=== PATIENT | male | born 1945 | race Caucasian/White ===

== ENCOUNTER 2025-10-27 15:23 | Inpatient (IN) | payer MEDICARE, MEDICAID ==
[~2025-10-27] VITALS: Ht 180.3 cm; Wt 77.0 kg
--- NOTE | 2025-10-27 15:34 | Physician Documentation ---
History of Present Illness General Stated Complaint: STEMI Time Seen by MD: 15:34 Medication Reconciliation Allergies: Coded Allergies: COVID-19 vaccine, mRNA, [id number], (Verified Allergy, Unknown, throat tightness, 10/27/25) Beta-Blockers (Beta-Adrenergic Bloc (Verified Adverse Reaction, Unknown, unspecified, 10/27/25) atenolol (Verified Adverse Reaction, Unknown, light headed, 10/27/25) bupropion (Verified Adverse Reaction, Unknown, unspecified, 10/27/25) levofloxacin (Verified Adverse Reaction, Unknown, unspecified, 10/27/25) Scheduled Amlodipine Besylate (Amlodipine Besylate), 1 TAB PO DAILY, (Reported) Duloxetine HCl (Duloxetine HCl), 1 CAP PO DAILY, (Reported) Fluticasone/Umeclidin/Vilanter (Trelegy Ellipta 200-62.5-25), 1 PUFFS INH DAILY, (Reported) Furosemide (Furosemide), 1 TAB PO DAILY, (Reported) Neomycin/Bacitracin/Polymyxinb (Neosporin Ointment), 1 APPLIC TOP Q12H, (Reported) Omeprazole (Prilosec), 1 CAP PO DAILY, (Reported) Rivaroxaban (Xarelto), 1 TAB PO DAILY, (Reported) Scheduled PRN Cyclobenzaprine HCl (Cyclobenzaprine HCl), 1 TAB PO TID PRN for muscle spasm, (Reported) Miscellaneous Medications Calcium Phosphate Dibas/Vit D3 (Risacal-D Tablet), (Reported) Guaifenesin (Chest Congestion Relief), (Reported) Insulin Glargine,Hum.rec.anlog* (Lantus*), SQ, (Reported) Insulin Lispro (Insulin Lispro Kwikpen U-100), SQ, (Reported) Prednisone (Prednisone), TAB PO, (Reported) Semaglutide (Ozempic), (Reported) Progress Results/Orders Results/Orders Orders - OHLFSJOAQUINA MD Chest,Single View (10/27/25 15:57) Monitor (10/27/25 15:36) Saline Lock (10/27/25 15:36) Oxygen (10/27/25 15:36) Completed Orders - OHLJOAQUINA ENNIS MD Chest,Single View (10/27/25 15:57) Cbc/Diff (10/27/25 15:36) BMP (10/27/25 15:36) PBNP (10/27/25 15:36) Electrocardiogram (10/27/25 15:36) Hs Troponin I W Calculations (10/27/25 15:36) Hs Troponin I W Calculations (10/27/25 17:36) Hs Troponin I W Calculations (10/27/25 18:36) Hgb A1c (10/27/25 15:45) Vital Signs 10/27/25 10/27/25 10/27/25 15:29 15:38 15:38 Temp 98.4 Pulse 96 Resp 16 18 B/P (MAP) 147/83 Pulse Ox 97 96 O2 Delivery Nasal Cannula* O2 Flow Rate 3.0 3 FiO2 N/A Laboratory Tests Test 10/27/25 15:45 White Blood Count 13.5 H Red Blood Count 5.47 Hemoglobin 12.8 L Hematocrit 40.7 L Mean Corpuscular Volume 74.3 L Mean Corpuscular Hemoglobin 23.4 L Mean Corpuscular Hemoglobin Concent 31.4 L Red Cell Distribution Width 18.8 H Platelet Count 229 Mean Platelet Volume 7.8 Neutrophils (%) (Auto) 92.8 H Lymphocytes (%) (Auto) 6.4 L Monocytes (%) (Auto) 0.5 L Eosinophils (%) (Auto) 0 Basophils (%) (Auto) 0.3 Neutrophils # (Auto) 12.5 H Lymphocytes # (Auto) 0.9 L Monocytes # (Auto) 0.1 Eosinophils # (Auto) 0.0 Basophils # (Auto) 0.0 CBC Comment Platelet Estimate Normal Red Blood Cell Morphology Perf Basophilic Stippling Anisocytosis 2+ Microcytosis 1+ Sodium Level 145 Potassium Level 3.9 Chloride Level 108 H Carbon Dioxide Level 30.9 Anion Gap 6 L Blood Urea Nitrogen 20 H Creatinine 1.25 H Estimated GFR/1.73 m2 55 BUN/Creatinine Ratio 16.0 Glucose Level 175 H Hemoglobin A1c 7.3 H Calcium Level 8.7 Troponin I High Sensitivity 713 *H Pro-B-Type Natriuretic Peptide 1006 H Albumin 3.3 L Chemistry Comments Departure Referrals: NO PRIMARY CARE PROVIDER (PCP) OHLLOLI,JOAQUINA Salcido MD Oct 27, 2025 15:34
--- NOTE | 2025-10-27 15:38 | ELECTROCARDIOGRAPH REPORT ---
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 SILVINO De Diso Measurements Intervals [place] Rate: 96 P: -79 UT: 157 QRS: -47 QRSD: 114 T: 35 QT: 357 QTc: 452 Interpretive Statements Ectopic atrial rhythm Atrial premature complex Sinus pause Abnormal R-wave progression, early transition LVH with IVCD, LAD and secondary repol abnrm Electronically Signed On 11-01-2025 19:21:[address] SILVINO De Dios Please click the below link to view image of tracing.
--- NOTE | 2025-10-27 15:49 | Physician Documentation ---
History of Present Illness CC: JOAQUINA FERREIRA MD ~ Chief Complaint: Chest Pain Stated Complaint: STEMI Time Seen by MD: 15:34 OK to notify your PCP?: Yes HPI This is a 80-year-old male with a history of atrial fibrillation, COPD 2 L home oxygen, CAD, patent foramen ovale, CKD, type 2 diabetes, epilepsy was transferred from the ER [facility] for evaluation of NSTEMI and cardiology consultation. Patient endorses that he had 3/10 chest pain associated with shortness of Breath this morning when he was returning from [facility] to the parking lot. Breathing treatment was administered at ER of [facility]. He also took all of his morning medications including Xarelto. EKG at [facility] showed atrial fibrillation without RVR heart rate 88, LVH, left axis deviation, nonspecific STT wave changes similar to prior EKGs. A chest x-ray showed no acute cardiopulmonary abnormalities. Laboratory data was significant for elevated troponin of 510 and 2nd troponin 07/30/2005. Patient was started on heparin drip and was transferred to the ER of [facility]. Echocardiogram in November 2024 showed EF of 55%, concentric LVH, moderate and mild MR. Patient received aspirin 324 mg and one dose of IV Solu-Medrol and breathing treatment with albuterol and Atrovent. Chest pain resolved with aspirin and saturation improved to 97% on 2 L of oxygen cannula. Other laboratory workup was within normal limits. Patient has a heavy smoking history since the age 13 and quit eight years ago (smoked about one pack per day). He was also heavy alcoholic and quit few years ago. 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 Patient has carotid stents placed in the left side. Patient also has a history of colostomy bag placement and colostomy reversal in the past. Timing/Duration: hours Quality/Severity: moderate Pain Location: substernal Radiation: no radiation Activities at Onset: light exertion Prior Cardiac Workup: stress test Modifying Factors: Improves with: breathing Nitro Today/Relief: no nitro taken today Aspirin Today: 325 mg x 1 Associated Symptoms: shortness of breath Medication Reconciliation Allergies: Coded Allergies: COVID-19 vaccine, mRNA, [id number], (Verified Allergy, Unknown, throat tightness, 10/27/25) Beta-Blockers (Beta-Adrenergic Bloc (Verified Adverse Reaction, Unknown, unspecified, 10/27/25) atenolol (Verified Adverse Reaction, Unknown, light headed, 10/27/25) bupropion (Verified Adverse Reaction, Unknown, unspecified, 10/27/25) levofloxacin (Verified Adverse Reaction, Unknown, unspecified, 10/27/25) Scheduled Amlodipine Besylate (Amlodipine Besylate), 1 TAB PO DAILY, (Reported) Duloxetine HCl (Duloxetine HCl), 1 CAP PO DAILY, (Reported) Fluticasone/Umeclidin/Vilanter (Trelegy Ellipta 200-62.5-25), 1 PUFFS INH DAILY, (Reported) Furosemide (Furosemide), 1 TAB PO DAILY, (Reported) Neomycin/Bacitracin/Polymyxinb (Neosporin Ointment), 1 APPLIC TOP Q12H, (Reported) Omeprazole (Prilosec), 1 CAP PO DAILY, (Reported) Rivaroxaban (Xarelto), 1 TAB PO DAILY, (Reported) Scheduled PRN Cyclobenzaprine HCl (Cyclobenzaprine HCl), 1 TAB PO TID PRN for muscle spasm, (Reported) Miscellaneous Medications Calcium Phosphate Dibas/Vit D3 (Risacal-D Tablet), (Reported) Guaifenesin (Chest Congestion Relief), (Reported) Insulin Glargine,Hum.rec.anlog* (Lantus*), SQ, (Reported) Insulin Lispro (Insulin Lispro Kwikpen U-100), SQ, (Reported) Prednisone (Prednisone), TAB PO, (Reported) Semaglutide (Ozempic), (Reported) Review of Systems Constitutional Constitutional: No fever, chills, dizziness, weakness, weight gain or loss Eyes: No pain, erythema, discharge, blurring of vision ENT: No sore throat, epistaxis, tinnitus Cardiovascular: No palpitations, syncope, lower extremity edema, paroxysmal nocturnal dyspnea Respiratory: Shortness of breath, No hemoptysis Gastrointestinal: Normal appetite. No nausea, vomiting, diarrhea, constipation, hematemesis, abdominal pain, bloating, melena or fresh blood Genitourinary: No frequency, urgency, nocturia, hematuria or dysuria Musculoskeletal: No arthralgias or myalgias Integumentary: No change in skin, hair, nails. No swelling, bruising, abrasions Neurologic: No headache, neck pain, numbness or tingling of the extremities, weakness Psychiatric: No delusions, depression, loss of interest in normal activity or change in sleep pattern, hallucinations, suicidal ideations Endocrine: No fatigue, weakness, polydipsia, polyuria, change in appetite, heat or cold intolerance, sweating, dry skin Hematological: No bleeding, petechiae, bruising Allergies: No asthma or urticaria Physical Exam Vital Signs: Temperature: 98.4, Source: Oral, Heart Rate: 96, Respiratory Rate: 16, BP: 147/83, Pulse Oximetry: 97, Weight: 77.000 Oxygen Flow Rate: 3.0 General Appearance General: Awake and Alert, no acute distress. On 3 L of oxygen through nasal cannula HEENT: Conjunctiva pink, Sclera clear, Mucus Membranes moist Neck: Supple without masses and tenderness. Resp: Unlabored. Decreased breath sounds bilaterally and mild wheezing on auscultation. Heart: Regular rhythm, normal S1 and S2, no rub, murmur or gallop, muffled heart sounds. Abdomen: Soft and non tender no organomegaly. Normal bowel sounds x4 quadrant normoactive. No guarding or rigidity. Extremities: Normal ROM, no swelling, nontender. No cyanosis,clubbing or edema. 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 Skin: Multiple bruises on arms and face. Warm and Dry. Progress Results/Orders Results/Orders Orders - JOAQUINA FERREIRA MD Chest,Single View (10/27/25 15:57) Monitor (10/27/25 15:36) Saline Lock (10/27/25 15:36) Oxygen (10/27/25 15:36) Completed Orders - JOAQUINA FERREIRA MD Chest,Single View (10/27/25 15:57) Cbc/Diff (10/27/25 15:36) BMP (10/27/25 15:36) PBNP (10/27/25 15:36) Electrocardiogram (10/27/25 15:36) Hs Troponin I W Calculations (10/27/25 15:36) Hs Troponin I W Calculations (10/27/25 17:36) Hs Troponin I W Calculations (10/27/25 18:36) Hgb A1c (10/27/25 15:45) Vital Signs 10/27/25 10/27/25 10/27/25 15:29 15:38 15:38 Temp 98.4 Pulse 96 Resp 16 18 B/P (MAP) 147/83 Pulse Ox 97 96 O2 Delivery Nasal Cannula* O2 Flow Rate 3.0 3 FiO2 N/A Laboratory Tests Test 10/27/25 15:45 White Blood Count 13.5 H Red Blood Count 5.47 Hemoglobin 12.8 L Hematocrit 40.7 L Mean Corpuscular Volume 74.3 L Mean Corpuscular Hemoglobin 23.4 L Mean Corpuscular Hemoglobin Concent 31.4 L Red Cell Distribution Width 18.8 H Platelet Count 229 Mean Platelet Volume 7.8 Neutrophils (%) (Auto) 92.8 H Lymphocytes (%) (Auto) 6.4 L Monocytes (%) (Auto) 0.5 L Eosinophils (%) (Auto) 0 Basophils (%) (Auto) 0.3 Neutrophils # (Auto) 12.5 H Lymphocytes # (Auto) 0.9 L Monocytes # (Auto) 0.1 Eosinophils # (Auto) 0.0 Basophils # (Auto) 0.0 CBC Comment Platelet Estimate Normal Red Blood Cell Morphology Perf Basophilic Stippling Anisocytosis 2+ Microcytosis 1+ Sodium Level 145 Potassium Level 3.9 Chloride Level 108 H Carbon Dioxide Level 30.9 Anion Gap 6 L Blood Urea Nitrogen 20 H Creatinine 1.25 H Estimated GFR/1.73 m2 55 BUN/Creatinine Ratio 16.0 Glucose Level 175 H Hemoglobin A1c 7.3 H Calcium Level 8.7 Troponin I High Sensitivity 713 *H Pro-B-Type Natriuretic Peptide 1006 H Albumin 3.3 L Chemistry Comments Heart Score: Heart Score Response (Comments) Value History Moderate Suspicious 1 EKG Repolarization Disturb 1 Age >65 2 Risk Factors >3 or Hx ASHD 2 Troponin >3 x's Normal limit 2 Total 8 Medical Decision Making Additional information obtaine: old records, other Findings EKG showed nonspecific ST-depression in inferior leads and T-wave inversions. Heparin drip was not continued as the patient's last dose of Xarelto was this morning. Heparin drip significantly increases the bleeding risk while superimposed on DOACs. Recommend starting heparin drip after a Xarelto washout period of 12-24 hours. Patient also had wheezing on examination and received a breathing treatment with duo nebs in the ER. Patient likely has COPD exacerbation along with the NSTEMI. Heart Score: 8 Differential Dx:Considerations: Include: angina, aortic dissection, chest wall pain, cholelithiasis, CHF, costochondritis, esophageal reflux/spasm, gastritis, myocardial infarction, pericarditis, pleuritis, pneumonia, pneumothorax, pul monary embolus, other Departure Disposition: ADMITTED INPATIENT Admitted to Inpatient Unit: to hospitalist Admission Level of Care: PCU with Tele Impression: Primary Impression: Chest pain Qualified Codes: R07.9 - Chest pain, unspecified Additional Impressions: Acute coronary syndrome COPD exacerbation Condition: Guarded Referrals: NO PRIMARY CARE PROVIDER (PCP) Additional Comment Seen with PA/LEAD ANDROID DEVELOPER The patient was seen with the manager of medical I have reviewed the resident's note and agree with the note as written and of the has been plan. I have independently examined the patient has been involved in all aspects of the patient's care and I have supervised all aspects of the patient's care. The patient's prior hospitalizations has been reviewed the patient presented with COPD he did have a slight episode of chest discomfort earlier in the day for presenting to [facility] where he was found to have elevated troponins the patient was found to be in a COPD exacerbation with a AFib transferred to our facility for cardiac evaluation. The patient's troponin is elevated the patient has been taking Xarelto we stopped his heparin as duplicate their therapy is not indicated this time. The patient has no evidence of an ST- elevation on his EKGs the case she was interpreted by me and the patient will be admitted to the hospitalist service. Signature Scribe Signature: No scribe Attestation: PGY2 resident attestation: Patient was seen and evaluated attending physician Dr. Olivia Chavez MD PGY 2 internal medicine resident ZACKARY GARLAND, RES Oct 27, 2025 15:49 JOAQUINA FERREIRA MD Oct 28, 2025 17:33
[2025-10-27] MEDS ORDERED: ipratropium/albuterol 3ml nebule NEB PRN (15:50)
[2025-10-27 16:03] LABS: MEAN PLATELET VOLUME 7.8 FL (7.4-10.4); RED CELL DISTRIBUTION WIDTH 18.8 % (11.5-14.5)
--- NOTE | 2025-10-27 16:07 | RADIOLOGY REPORT ---
EXAM: DI CHEST,SINGLE VIEW HISTORY: CP COMPARISON: None TECHNIQUE: Portable upright AP views of the chest were performed. FINDINGS: There are mild interstitial opacities in the bilateral lung bases. There may be emphysematous changes of the upper lobes. No no pneumothorax or consolidative infiltrates. The heart is not enlarged. The aortic arch is calcific. IMPRESSION: 1. Mild interstitial opacities in the lung bases may be due to scarring, mild pneumonia, or mild pulmonary edema. Comparison with previous chest imaging would be helpful in making this distinction. 2. Possible Emphysema.
[2025-10-27 16:17] LABS: CREATININE 1.25 MG/DL (0.60-1.10); PLATELET ESTIMATE NORMAL; PRO BRAIN NATRIURETIC PEPTIDE 1006 PG/ML (0-450); TOTAL CARBON DIOXIDE 30.9 MMOL/L (24-32); eCRCL 49 ML/MIN; eGFR 55 ML/MIN
[2025-10-27] MEDS ORDERED: magnesium Cl slow-release 64mg tablet PO PRN (16:55)
[2025-10-27] MEDS ORDERED: potassium Cl 20 mEq SR tablet PO PRN ×2 (16:55)
[2025-10-27] MEDS ORDERED: magnesium hydroxide 30ml (MOM) UD suspension PO PRN (16:55)
[2025-10-27] MEDS ORDERED: magnesium sulf-water 2g/50mL 50 ML IV PRN (16:55)
[2025-10-27] MEDS ORDERED: potassium Cl 40MEQ/1/2NS 520ml 520 ML IV PRN (16:55)
[2025-10-27] MEDS ORDERED: mag hydrox/Alum hydrox/simeth 30ml oral suspension PO PRN (16:55)
[2025-10-27] MEDS ORDERED: magnesium sulf-water 4G/100mL 100 ML IV PRN (16:55)
[2025-10-27] MEDS ORDERED: ondansetron/PF 4mg/2ml inj IV PRN (16:55)
--- NOTE | 2025-10-27 16:55 | CONSULTATION REPORT ---
History of Present Illness Providers to CC CC: JING CASTRO MD ~ Reason for Admit\Admit Dx: Cardiology consultation History of Present Illness Patient presented secondary to shortness for breath. On Monday, he had an episode where his faint blue up in his face resulting in boyce to his nasopharynx. He was prescribed an antibiotic ointment. He was going to [place] to pick this up and developed shortness for breath upon going back to his car. Therefore, he presented back to [facility]. He has a complex medical history including atrial fibrillation on Xarelto, coronary artery disease. He states his main artery in the front of his heart is 50% blocked which is being managed medically, COPD, CKD, diabetes mellitus type 2, history of CVA, pancreatitis, hypertension, PFO, carotid artery stenosis with complete occlusion of the right ICA and multiple stents to the left ICA. Patient denies any chest pain or pressure. Does have shortness for breath and dyspnea on exertion. No dizziness, lightheadedness or syncope. Was asked, but otherwise denies review of systems. Allergies: Coded Allergies: COVID-19 vaccine, mRNA, [id number], (Verified Allergy, Unknown, throat tightness, 10/27/25) Beta-Blockers (Beta-Adrenergic Bloc (Verified Adverse Reaction, Unknown, unspecified, 10/27/25) atenolol (Verified Adverse Reaction, Unknown, light headed, 10/27/25) bupropion (Verified Adverse Reaction, Unknown, unspecified, 10/27/25) levofloxacin (Verified Adverse Reaction, Unknown, unspecified, 10/27/25) Past Medical History Medical History Comment Coronary artery disease Atrial fibrillation on Xarelto Chronic kidney disease COPD on home oxygen Carotid artery stenosis status post left stent and right chronic occlusion BSO Hypertension History of for strokes in the past Moderate aortic stenosis Seizure disorder Past Social History Social History Comment Patient states he quit smoking. He picked up a vape recently has he found that and it ultimately blue up in his face. Physical Exam Last Vital Signs Recorded: RN Vital Signs have been reviewed: Yes, Temperature: 98.4, Source: Oral, Heart Rate: 96, Respiratory Rate: 18, BP: 147/83, Pulse Oximetry: 96, Weight: 77.000 Physical Exam General: Awake, alert, oriented. No apparent distress Neck: Supple. Normal range of motion. No JVD Respiratory: Lungs are expiratory wheezing to auscultation bilaterally. No respiratory distress. He is speaking in full sentences Chest: Normal shape and size. No accessory muscle use. Cardiovascular: Regular rate and rhythm. S1-S2. Positive OLEG. No gallop, rub. Gastrointestinal: Abdomen is soft. Nontender to palpation. Bowel sounds present. Extremities: No lower extremity edema, cyanosis or clubbing. Neurologic: Alert and oriented x4. Nonfocal Psychiatric: Normal mood and affect. Skin: Normal color. Warm and dry. Review of Systems All Other Systems at this time: Reviewed and Negative ROS Review of systems negative except documented in HPI. Results EKG EKG EKG shows sinus rhythm PAC. Nonspecific ST-T changes. Diagram Lab Result Diagram: 10/27/25 1545 10/27/251544 Assessment/Plan Additional Plan Patient presented secondary to dyspnea on exertion. Initially transferred from [facility] secondary to NSTEMI. The following is his problem list: NSTEMI --trend troponins --was initially started on heparin however given that he is also on Xarelto this was stopped. May restart tonight or after 24 hours of his last dose --aspirin 81 mg daily --check echocardiogram --we will follow in the morning COPD Chronic hypoxic respiratory failure on home oxygen --management per hospitalist Moderate aortic stenosis by echocardiogram November 2024 --repeat echocardiogram ordered Atrial fibrillation, paroxysmal --on Xarelto as an outpatient. Diabetes mellitus with CKD --management per hospitalist History of PFO --echocardiogram pending Stated history of coronary artery disease --trend troponins. Check echocardiogram. Check lipids. Aspirin, statin. Heparin when able Carotid artery stenosis, history of --outpatient follow up Case discussed with Dr. Bernadette Castro. Awaiting echocardiogram. We will follow. MALLY GUTIERREZ NP Oct 27, 2025 16:55
[2025-10-27 16:58] VITALS: PULSE 106; RESP 18; O2SAT 93
[2025-10-27] MEDS: HEPARIN DRIP-CARDIAC**PHARMACIST-TO-DOSE IV ONE (17:17)
[2025-10-27] MEDS: HEPARIN DRIP INITAL BOLUS --- DO NOT GIVE/ORDER MC ONE (17:18)
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
[2025-10-27] MEDS: normal saline 1000ml 1,000 ML IV SCH (17:36)
[2025-10-27] MEDS: CefTRIAXone/D5W-Rocephin 1gm 50 ML IV SCH (17:37)
[2025-10-27] MEDS: azithromycin/NS 500mg/250ml 250 ML IV SCH (17:40)
[2025-10-27] MEDS: MESSAGE TO NURSING IV ONE (17:42)
[2025-10-27] MEDS: heparin 25,000 UNIT/250ml bag 250 ML IV PRN (17:48)
[2025-10-27] MEDS ORDERED: DEXTROSE 15 GM of carb/4 tabs (each vial/BOTTLE has 4 tablets) PO PRN ×2 (17:50)
[2025-10-27] MEDS ORDERED: glucagon, human recombinant 1mg kit SUBCUT PRN (17:50)
[2025-10-27] MEDS ORDERED: dextrose 50%-water 50ml dispensing syringe IV PRN ×2 (17:50)
[2025-10-27 17:56] LABS: CHOL/HDL RATIO 3.3 (0.00-4.99); LDL CHOLESTEROL 134 MG/DL (50-100)
[2025-10-27] MEDS: INSULIN LISPRO 100 UNIT/ML INSULN.PEN MULTI-DOSE SQ SCH ×2 (18:00→23:33)
[2025-10-27 18:06] LABS: APTT 32 SECONDS (22-32)
[2025-10-27] MEDS ORDERED: AMLO10TA13 PO (18:33)
[2025-10-27] MEDS ORDERED: OMEP40CA21 PO (18:33)
[2025-10-27] MEDS ORDERED: MAGN500T2 (18:33)
[2025-10-27] MEDS ORDERED: DULO60CA65 PO (18:33)
[2025-10-27] MEDS ORDERED: FLUT1BLS16 INH (18:33)
[2025-10-27] MEDS ORDERED: FURO20TA4 PO (18:33)
[2025-10-27] MEDS ORDERED: PRED10TA PO (18:33)
[2025-10-27] MEDS ORDERED: [UNRECOGNIZED DRUG - CODE] (18:33)
[2025-10-27] MEDS ORDERED: [UNRECOGNIZED DRUG - CODE] (18:33)
[2025-10-27] MEDS ORDERED: INSU100I61 SQ (18:33)
[2025-10-27] MEDS ORDERED: RIVA20TA PO (18:33)
[2025-10-27] MEDS ORDERED: LANTUS SQ (18:33)
[2025-10-27] MEDS ORDERED: SEMA1PEN3 (18:33)
[2025-10-27] MEDS ORDERED: CYCL-920 PO (18:33)
[2025-10-27 19:00] VITALS: BP 122/71; PULSE 87; RESP 18; TEMP 97.2; O2SAT 97
[2025-10-27 20:00] VITALS: BP_SYST 125; BP_SYST 134; BP_SYST 163; BP_DIAS 62; BP_DIAS 68; BP_DIAS 83; PULSE 109; PULSE 80
[2025-10-27] MEDS: K and/or MAG REPLACEMENT MC SCH (20:00)
[2025-10-27] MEDS: methylPREDNISolone sod succ/PF 40mg inj. IV SCH (20:58)
[2025-10-27] MEDS: docusate sod 100mg capsule PO SCH (20:59)
[2025-10-27 22:00] VITALS: BP 132/75; PULSE 90; RESP 23; TEMP 97.7; O2SAT 96
[2025-10-27] MEDS: normal saline 1000ml 1,000 ML IV ONE (22:51)
[2025-10-27] MEDS: insulin glargine (Lantus) pen - multi-dose SQ SCH (23:31)
[2025-10-28] VITALS (27 sets, daily range): BP systolic 98–163; BP diastolic 47–97; PULSE 70–103; RESP 13–24; TEMP 97.2–97.8; O2SAT 80–100
[2025-10-28] MEDS: MESSAGE TO NURSING IV ONE ×2 (01:40→09:34)
[2025-10-28] MEDS: heparin 10,000 units/1 ML INJ IV PRN (02:14)
[2025-10-28] MEDS: vancomycin/NS 1 GM ADD-VANTAGE 250 ML X 1 DOSE IV ONE ×2 (03:45→05:15)
[2025-10-28] MEDS: ipratropium/albuterol 3ml nebule NEB SCH (04:54)
[2025-10-28 07:18] LABS: MEAN PLATELET VOLUME 7.8 FL (7.4-10.4); RED CELL DISTRIBUTION WIDTH 18.6 % (11.5-14.5)
[2025-10-28 07:36] LABS: CHOL/HDL RATIO 3.0 (0.00-4.99); CREATININE 1.01 MG/DL (0.60-1.10); LDL CHOLESTEROL 108 MG/DL (50-100); TOTAL CARBON DIOXIDE 26.6 MMOL/L (24-32); eCRCL 61 ML/MIN; eGFR 71 ML/MIN
[2025-10-28] MEDS: normal saline 1000ml 1,000 ML IV SCH (07:55)
[2025-10-28] MEDS: duloxetine 30mg CAPSULE.DR PO SCH (08:34)
[2025-10-28] MEDS: vancomycin/NS 1 GM ADD-VANTAGE 250 ML IV SCH (09:35)
[2025-10-28] MEDS ORDERED: NEOM28.37 TOP (10:31)
--- NOTE | 2025-10-28 12:48 | PROGRESS NOTE ---
Progress Note Cardiology Providers to CC ~ Subjective Subjective Patient is seen and examined this morning. He is up and ambulatory. Sitting at the side of the bed. Denies significant shortness for breath at this time. Found to have severe aortic stenosis. Objective Result Diagram: 10/28/2563210/28/25632 Objective General: Awake, alert, oriented. No apparent distress Neck: Supple. Normal range of motion. No JVD Respiratory: Clear bilaterally Chest: Normal shape and size. No accessory muscle use. Cardiovascular: Regular rate and rhythm. S1-S2. Positive OLEG. No gallop, rub. Gastrointestinal: Abdomen is soft. Nontender to palpation. Bowel sounds present. Extremities: No lower extremity edema, cyanosis or clubbing. Neurologic: Alert and oriented x4. Nonfocal Psychiatric: Normal mood and affect. Coagulation Studies Laboratory Tests Test 10/27/25 17:24 10/28/25 07:51 Activated Partial Thromboplast Time 32 SECONDS (22-32) APTT (Heparin Protocol) 29 SECONDS (45-60) L Coagulation Comments Problem\Assessment\Plan Additional Plan Patient presented secondary to dyspnea on exertion. Initially transferred from [facility] secondary to NSTEMI. The following is his problem list: NSTEMI High sensitivity troponins 713, 715, 582, 534, 300 and 95 Continues to deny chest pain Echocardiogram with wall motion abnormalities. Preserved LVEF and severe aortic stenosis. --aspirin 81 mg daily --continue heparin drip Recommend angiogram. Risks, benefits and all alternatives were reviewed in detail with him. He had the opportunity to ask questions and agreeable to proceed. Severe aortic stenosis --we will need outpatient follow-up. Explained to patient. He is agreeable to follow up in [place]. We will schedule for left heart catheterization as noted above COPD Chronic hypoxic respiratory failure on home oxygen --management per hospitalist Moderate aortic stenosis by echocardiogram November 2024 --repeat echocardiogram ordered Atrial fibrillation, paroxysmal --on Xarelto as an outpatient. Diabetes mellitus with CKD --management per hospitalist History of PFO --echocardiogram pending Stated history of coronary artery disease --trend troponins. Check echocardiogram. Check lipids. Aspirin, statin. Heparin when able Carotid artery stenosis, history of --outpatient follow up Case discussed with Dr. Bernadette Castro. Awaiting echocardiogram. We will follow. Supervising Physician: Dr. MALLY Bowen NP Oct 28, 2025 12:48
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
[2025-10-28] MEDS ORDERED: verapamil 2.5 mg/ml inj IV ONE (14:58)
[2025-10-28] MEDS ORDERED: fentaNYL/PF 50MCG/1 ML 2ML syringe ONE (14:58)
[2025-10-28] MEDS ORDERED: LIDOcaine 1% 30ml preserv. free vial ONE (14:58)
[2025-10-28] MEDS ORDERED: midazolam 1 mg/ML 2ml injection ONE (14:58)
[2025-10-28] MEDS ORDERED: heparin 1,000unit/ml 10ml vial 10 ML ONE (14:59)
[2025-10-28] MEDS ORDERED: nitroGLYCERIN 500mcg/5mL D5W 5 ML IV ONE (14:59)
[2025-10-28] MEDS ORDERED: OXAZEpam 15mg capsule PO PRN (16:40)
[2025-10-28] MEDS ORDERED: ondansetron/PF 4mg/2ml inj IV PRN (16:40)
--- NOTE | 2025-10-28 17:38 | CARDIOLOGY REPORT ---
APPROVED REPORT EXAM: Comprehensive 2D, Doppler, and color-flow Echocardiogram. Patient Location: 301 Blood Pressure: 121 /72 mmHg Heart Rate: 100 bpm Rhythm: ATRIAL FIBRILLATION Indications SHORT OF BREATH ELEVATED PROBNP (1006) HS TROPONIN ( 713, 715, 582, 534, 395) ATRIAL FIBRILLATION HYPERTENSION KNOWN PFO? Outside Sales Consultant: Chel Castro MD (CONSULT) Previous echo: 12/18/24 BENITO EF: 50-55%; modAS(AVA1.0; PKV 3.5; GRAD: 48 /27); Addis; mMR; mTR; PAP 34mmHG 2D Dimensions RVDd 3.4 cm LA Diam 5.3 cm IVSd 1.4 (0.7-1.1cm) LVDd 4.3 cm PWd 1.5 (0.7-1.1cm) IVSs 1.5 (0.8-1.2cm) LVDs 3.1 (2.5-4.0cm) PWs 1.4 (0.8-1.2cm) LVOT Diameter 2.25 (1.8-2.4cm) LVEF(%) 54.7 (>50%) IVC 20.38 mm FS (%) 28.1 % SV 45.9 ml CO 4.6 L/min M-Mode Dimensions Left Atrium(MM) 4.12 (2.5-4.0cm) Aortic Root 3.46 (2.2-3.7cm) Aortic Cusp Exc 0.82 (1.5-2.0cm) Biplane 2D LA Volumes LA ESV Index 13.84 mL/m2 Aortic Valve AoV Peak Mauricio. 442.2 cm/s AoV VTI 95.4 cm AO Peak GR. 78.2 mmHg AO Mean GR. 46 mmHg LVOT VTI 22.40 cm LVOT Peak Mauricio. 105.6 cm/s SALVADOR(VTI)/BSA 0.93 cm2/m2 SALVADOR (VTI) 0.93 cm2 AV DI 0.23 % Mitral Valve MV Peak Gr. 12 mmHg MV PHT 64 ms MVA (PHT) 3.44 cm2 MV VMax 172.4 cm/s LEFT VENTRICLE Normal LV size and low normal function. Moderate concentric hypertrophy. Inferior and inferoseptal basal hypokinesis. LVEF is 50-55%. RIGHT VENTRICLE RV is mildly dilated with normal function. ATRIA The left atrium size is normal. The right atrium size is normal. Pt states history of PFO, unable to clearly visualize due to intense aortic flow. (obscured view). AORTIC VALVE Trileaflet AV appears heavily calcified with significant stenosis demonstrated by reduced excursion and increased transvalvular and ascending aorta turbulance. SALVADOR: 0.93 cmsq; Pkv: 4.42 m/sec; Gradients: 78 / 46 mmHG. Trace insufficiency. Measurements are multi sampled averages due to variable rhythm. Pathology suggests that referral and / or treatment should be considered. MITRAL VALVE Mild MV annular calcification without stenosis. Mild regurgitation. TRICUSPID VALVE TV appears structurally normal with trace regurgitation. PULMONIC VALVE Normal PV without stenosis, physiologic insufficiency. GREAT VESSELS The aortic root is normal in size. Ascending aorta is not well visualized. The IVC is normal in size and collapses greater than 50% with inspiration. PERICARDIUM Normal pericardium. No effusion. Other Information Study Quality: Adequate Conclusion Normal LV size and low normal function. Moderate concentric hypertrophy. Inferior and inferoseptal basal hypokinesis. LVEF is 50-55%. RV is mildly dilated with normal function. The left atrium size is normal. The right atrium size is normal. Pt states history of PFO, unable to clearly visualize due to intense aortic flow. (obscured view). Trileaflet AV appears heavily calcified with significant stenosis demonstrated by reduced excursion and increased transvalvular and ascending aorta turbulance. SALVADOR: 0.93 cmsq; Pkv: 4.42 m/sec; Gradients: 78 / 46 mmHG. Trace insufficiency. Measurements are multi sampled averages due to variable rhythm. Mild MV annular calcification without stenosis. Mild regurgitation. TV appears structurally normal with trace regurgitation. Normal pericardium. No effusion.
[2025-10-29] VITALS (19 sets, daily range): BP systolic 109–158; BP diastolic 52–80; PULSE 63–96; RESP 15–20; TEMP 96.6–97.8; O2SAT 92–98
[2025-10-29 07:09] LABS: MEAN PLATELET VOLUME 7.8 FL (7.4-10.4); RED CELL DISTRIBUTION WIDTH 18.3 % (11.5-14.5)
[2025-10-29 07:25] LABS: CREATININE 0.86 MG/DL (0.60-1.10); TOTAL CARBON DIOXIDE 28.9 MMOL/L (24-32); eCRCL 72 ML/MIN; eGFR 85 ML/MIN
[2025-10-29] MEDS ORDERED: [UNRECOGNIZED DRUG - CODE] PO (07:53)
[2025-10-29] MEDS: pantoprazole 40mg Tablet.DR PO SCH (08:17)
[2025-10-29 11:12] LABS: ISTAT HGB MIX 11.9 g/dl (14.0-17.9); ISTAT Hct MIX 35 %PCV (42-52); ISTAT O2 SATURATION MIX VENOUS 63 % (60-80); ISTAT SOURCE VEN
[2025-10-29] MEDS: methylPREDNISolone sod succ/PF 40mg inj. IV SCH (13:19)
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
[2025-10-30] VITALS (20 sets, daily range): BP systolic 105–159; BP diastolic 62–82; PULSE 68–94; RESP 16–29; TEMP 97–97.7; O2SAT 93–99
[2025-10-30 07:04] LABS: MEAN PLATELET VOLUME 7.8 FL (7.4-10.4); RED CELL DISTRIBUTION WIDTH 18.0 % (11.5-14.5)
[2025-10-30] MEDS ORDERED: LEVE250T PO (07:21)
[2025-10-30 07:55] LABS: CREATININE 0.91 MG/DL (0.60-1.10); TOTAL CARBON DIOXIDE 28.5 MMOL/L (24-32); eCRCL 68 ML/MIN; eGFR 80 ML/MIN
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
[2025-10-30] MEDS: INSULIN LISPRO 100 UNIT/ML INSULN.PEN MULTI-DOSE SQ SCH (12:10)
[2025-10-30] MEDS ORDERED: HYDROcodone/acetaminophen 10/325mg tab PO ONE (17:45)
[2025-10-30] MEDS: insulin glargine (Lantus) pen - multi-dose SQ SCH (21:35)
[2025-10-31] VITALS (11 sets, daily range): BP systolic 134–157; BP diastolic 56–79; PULSE 71–92; RESP 12–20; TEMP 97.3–98.1; O2SAT 95–99
[2025-10-31 07:20] LABS: MEAN PLATELET VOLUME 8.3 FL (7.4-10.4); RED CELL DISTRIBUTION WIDTH 18.0 % (11.5-14.5)
[2025-10-31 07:38] LABS: CREATININE 1.03 MG/DL (0.60-1.10); TOTAL CARBON DIOXIDE 29.2 MMOL/L (24-32); eCRCL 60 ML/MIN; eGFR 69 ML/MIN
[2025-10-31] MEDS ORDERED: PRED10TA23 PO ×2 (13:26→13:53)
[2025-10-31] MEDS ORDERED: CEFD300C3 PO ×3 (13:26→14:45)
[2025-10-31] MEDS ORDERED: ALBU8HFA PO ×3 (13:27→14:45)
[2025-10-31] MEDS ORDERED: LACT1CAP26 PO ×3 (13:27→14:45)
[2025-10-31] MEDS ORDERED: ASPI81TA53 PO ×3 (13:35→14:45)
[2025-10-31] MEDS ORDERED: ATOR20TA66 PO (13:55)
[2025-10-31] MEDS ORDERED: OMEP40CA21 PO (14:17)
[2025-10-31] MEDS ORDERED: ATOR-2 PO (14:45)
[2025-10-31] MEDS ORDERED: PRED-892 PO (14:45)
[2025-10-31] MEDS ORDERED: OMEP20CA15 PO (14:45)
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
[2025-11-11] MEDS ORDERED: FURO20TA4 PO (12:09)
[2025-11-11] MEDS ORDERED: GUAI600T45 PO (12:09)
[2025-11-11] MEDS ORDERED: LACT1CAP26 PO (12:09)
[2025-11-11] MEDS ORDERED: PRED10TA PO (12:09)
[2025-11-11] MEDS ORDERED: AZIT500T9 PO (12:09)
--- NOTE | 2025-12-05 14:22 | CARDIOLOGY REPORT ---
DATE OF SERVICE: 10/28/2025 DICTATING PHYSICIAN: Kurt Castro MD CARDIAC CATHETERIZATION REPORT DATE OF STUDY: 10/28/2025 PROCEDURES: * Access to the right radial artery. * Access to the right common femoral vein. * Right heart catheterization. * Selective coronary angiography. * Conscious sedation monitoring time for 15 minutes. INDICATION: Aortic stenosis. PHYSICIAN: Kurt Castro MD DESCRIPTION OF PROCEDURE: After informed consent was obtained, the patient was brought to the lab where he was prepped and draped in the usual sterile fashion. A 6-[place] Island[place] sheath was inserted into the right radial artery and an 8-[place] Island[place] sheath in the right femoral vein. Next, using a Lima-Aranza catheter, the catheter was advanced under fluoroscopic guidance into the outflow tract and into the wedge position where pulmonary capillary wedge pressure and right-sided pressures were obtained. The Lima-Aranza catheter was then removed. Next, using a TIG catheter, the catheter was advanced via the sheath in the radial artery over a 0.035 wire into the ascending aorta. The wire was removed. The catheter manipulated and selective coronary angiography performed. HEMODYNAMICS: For the patient's hemodynamics, please refer to the event log. The patient's pulmonary capillary wedge pressure was 31/33 with a mean of 25 mmHg. Pulmonary arterial pressure was 48/23 with a mean of 35 mmHg. Right ventricular pressure was 47/5 with a mean of 1 mmHg. Right atrial pressure was 15/9 with a mean of 12 mmHg. Pulmonary arterial saturation was 63%. AO saturation 95%. FINDINGS: The left main coronary artery is a normal caliber vessel with a 30% distal stenosis. The left anterior descending coronary artery is a medium caliber mildly calcified vessel with a 40% mid vessel stenosis. The diagonal branch of the LAD also has a 40% stenosis. The circumflex coronary artery is a medium caliber vessel and appears to have a 60% discrete mid vessel stenosis. The right coronary artery is a medium caliber vessel that is also calcified. The mid right has a 70-80% discrete lesion. Mild diffuse distal disease is noted. IMPRESSION: * 40% stenosis of the mid left anterior descending and 40% stenosis of the proximal diagonal branch of the left anterior descending. * There appears to be a 60% discrete stenosis of the mid circumflex coronary artery. * 70-80% proximal to mid right coronary artery stenosis. * Elevated right-sided pressures. The patient's mean pulmonary capillary wedge pressure was 25 and mean pulmonary arterial pressure 35 mmHg. Kurt Castro MD TID: [id number] RECEIPT: [id number] STEPHEN/BRAYDEN
== END 2025-10-31 16:21 | disposition home health service (06) | DRG 871 ==
LOC: ER 15:24 → ED HOLD 16:15 → PCU 3S 18:56
PROVIDERS: ADMIT Family Medicine; ATTEND Family Medicine
PROC: 05H933Z Insertion of Infusion Device into Right Brachial Vein, Percutaneous Approach (ICD-10-PCS; principal; 2025-10-28)
PROC: B54MZZA Ultrasonography of Right Upper Extremity Veins, Guidance (ICD-10-PCS; 2025-10-28)
PROC: 4A023N6 Measurement of Cardiac Sampling and Pressure, Right Heart, Percutaneous Approach (ICD-10-PCS; 2025-10-28)
PROC: B2111ZZ Fluoroscopy of Multiple Coronary Arteries using Low Osmolar Contrast (ICD-10-PCS; 2025-10-28)
DX: A41.9 Sepsis, unspecified organism (principal); J18.9 Pneumonia, unspecified organism; J96.21 Acute and chronic respiratory failure with hypoxia; J44.0 Chronic obstructive pulmonary disease with (acute) lower respiratory infection; I48.0 Paroxysmal atrial fibrillation; G40.909 Epilepsy, unspecified, not intractable, without status epilepticus; Z79.01 Long term (current) use of anticoagulants; E11.22 Type 2 diabetes mellitus with diabetic chronic kidney disease; I35.0 Nonrheumatic aortic (valve) stenosis; I65.23 Occlusion and stenosis of bilateral carotid arteries; N18.9 Chronic kidney disease, unspecified; I12.9 Hypertensive chronic kidney disease with stage 1 through stage 4 chronic kidney disease, or unspecified chronic kidney disease; J44.1 Chronic obstructive pulmonary disease with (acute) exacerbation; R04.0 Epistaxis; I25.10 Atherosclerotic heart disease of native coronary artery without angina pectoris; Z99.81 Dependence on supplemental oxygen; Z88.8 Allergy status to other drugs, medicaments and biological substances; Z88.7 Allergy status to serum and vaccine; Z88.1 Allergy status to other antibiotic agents; Z79.899 Other long term (current) drug therapy; Z86.73 Personal history of transient ischemic attack (TIA), and cerebral infarction without residual deficits; Z87.891 Personal history of nicotine dependence
CPT/HCPCS: 36410; 36415; 71045; 76937; 80048; 80053; 80061; 80202; 82330; 82803; 82948; 83036; 83605; 83735; 83880; 84145; 84443; 84484; 85008; 85014; 85025; 85730; 87040; 87077; 87081; 87186; 93005; 93306; 93460; 94640; 94760; 97116; 97162; 99152; 99285; A4615; A6258; A6260; A6449; C1751; C1894; G0378; J0456; J0696; J1644; J1815; J2003; J2250; J2919; J3010; J3373; J3490; J7030; Q9967